=== PATIENT | female | born 1980 | race Caucasian/White ===

== ENCOUNTER 2016-11-30 11:43 | Outpatient (CLI) | payer BC ==
[2016-11-30 12:30] LABS: Free T4 (Free Thyroxine) 1.1 ng/dL (0.70-1.48); Thyroid Stimulating Hormone 0.1231 uIU/mL (0.35-4.94)
== END 2016-11-30 11:44 | disposition home or self-care (01) ==
LOC: BURLAB 11:43
PROVIDERS: ATTEND Internal Medicine Endocrinology, Diabetes & Metabolism
DX: E78.5 Hyperlipidemia, unspecified (principal); E03.9 Hypothyroidism, unspecified
CPT/HCPCS: 36415; 84439; 84443; 84481

== ENCOUNTER 2017-05-10 20:52 | Emergency (ER) | payer BC ==
[2017-05-10] MEDS ORDERED: Adacel (T-DAP) 0.5 ML VIAL ONE (22:02)
--- NOTE | 2017-05-10 22:13 | CT ---
CT OF THE BRAIN WITHOUT CONTRAST 05/10/17 A noncontrast study shows normal sized ventricles with no shift. No intracranial bleeding, mass or ex tra-axial hematoma was seen. There is no sign of stroke or edema. The sphenoid sinus and visible para nasal sinuses are clear. The mastoid air cells are clear. IMPRESSION: No acute intracranial findings. POS: HOME
== END 2017-05-10 22:14 | disposition home or self-care (01) ==
LOC: BURERS 20:52
DX: S01.81XA Laceration without foreign body of other part of head, initial encounter (principal); E03.9 Hypothyroidism, unspecified; E78.5 Hyperlipidemia, unspecified; Z79.899 Other long term (current) drug therapy; W19.XXXA Unspecified fall, initial encounter
CPT/HCPCS: 12051; 70450; 90471; 90715